=== PATIENT | female | born 1955 | race Caucasian/White ===

== ENCOUNTER 2023-06-24 15:36 | Emergency (ER) | payer OTHER, SELFPAY ==
[2023-06-24 15:39] VITALS: BP 131/64; PULSE 100; RESP 14; TEMP 36.5; O2SAT 97; BMI 21.9
--- NOTE | 2023-06-24 15:53 | DI.RAD.S_ITS ---
PROCEDURE: XR CHEST 1V INDICATIONS: Possible stroke TECHNIQUE: One view of the chest was acquired. COMPARISON: None. FINDINGS: Surgical changes and devices: None. Lungs and pleura: Lungs are clear. No pleural effusions or pneumothorax. Mediastinum: Mediastinal contours appear normal. Heart size is normal. Bones and chest wall: No suspicious bony lesions. Overlying soft tissues appear unremarkable. IMPRESSION: Portable chest within normal limits for age. Approved by: Josh Yang M.D. on 06/24/2023 at 16:09
--- NOTE | 2023-06-24 15:53 | DI.CT.S_ITS ---
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 For radiation dose reduction, the following was used: automated exposure control, adjustment of mA and/or kV according to patient size. COMPARISON: None. FINDINGS: Image quality: Excellent. CSF spaces: Basal cisterns are patent. No extra-axial fluid collections. Ventricles are normal in size and shape. Brain: No midline shift. No intracranial masses or hemorrhage. Barnett-white matter interface is normal. Skull and face: Calvarium and visualized facial bones are intact, without suspicious lesions. Debris in the left external auditory canal(s) can be correlated with direct visualization Sinuses: Visualized sinuses and mastoids are clear. IMPRESSION: Normal CT of the brain This study fulfills neurological imaging criteria for inclusion or exclusion of acute stroke therapies based on available published neurological imaging guidelines. Approved by: Josh Yang M.D. on 06/24/2023 at 15:10
[2023-06-24 16:10] LABS: Appearance Urine UA CLEAR; Bilirubin Urine UA NEGATIVE (NEGATIVE); Color Urine UA YELLOW; Glucose Urine UA NEGATIVE (Negative); Ketones Urine UA NEGATIVE (NEGATIVE); Leukocyte Esterase Urine UA NEGATIVE (NEGATIVE); Nitrite Urine UA NEGATIVE (Negative); Occult Blood Urine UA TRACE-INTACT (Negative); Protein Urine UA NEGATIVE (Negative); Specific Gravity Urine UA <=1.005 (1.000-1.035); Urobilinogen Urine UA 0.2 E.U./dL (0.2)
[2023-06-24 16:15] LABS: UR Morphine/Opiate cutoff 300 Negative (Negative); Ur Creatinine Normal (Normal); Ur Specific Gravity Normal (Normal); Urine Amphetamines Negative (Negative); Urine Barbiturates Negative (Negative); Urine Benzodiazepines Negative (Negative); Urine Cocaine Negative (Negative); Urine MDMA Negative (Negative); Urine Methadone Negative (Negative); Urine Methamphetamines Negative (Negative); Urine Oxycodone Negative (Negative); Urine Phencyclidine Negative (Negative); Urine Tetrahydrocannabinol Positive (Negative); Urine Tricyclic Antidepressant Negative (Negative); Urine pH Normal (Normal)
[2023-06-24 16:17] LABS: Bacteria Urine Occasional (0-1); Culture Indicated Urine Specimen Cultured; RBC Urine 0-1/HPF (0-5/HPF); Squamous Epithelial Cell Urine 10-30 /HPF (0-5/HPF); WBC Urine None Seen (0-5/HPF)
[2023-06-24 16:24] LABS: Add Manual Diff / Slide Review NO; Basophils Absolute Auto 100 /uL (0-100); Basophils Percent Auto 0.7 % (0-2); Eosinophils Absolute Auto 100 /uL (0-450); Eosinophils Percent Auto 1.2 % (2-4); Hematocrit 36.9 % (36-46); Lymphocytes Absolute Auto 2500 /uL (1100-4500); Lymphocytes Percent Auto 32.2 % (25-40); Mean Corpuscular HGB Conc 35.1 % (30-36); Mean Corpuscular Hemoglobin 34.2 PG (26-34); Mean Corpuscular Volume 97.4 fL (80-100); Monocytes Absolute Auto 600 /uL (0-900); Monocytes Percent Auto 7.4 % (3-14); Neutrophils Absolute Auto 4500 /uL (1500-7000); Neutrophils Percent Auto 58.5 % (50-75); Platelet Count 346 X10^3/uL (150-400); Red Blood Cell Count 3.79 X10^6/uL (4.0-5.2); Red Cell Distribution Width 14.4 % (11.6-14.8); White Blood Cell Count 7.7 X10^3/uL (4.5-11.0)
[2023-06-24 16:28] LABS: INR 0.9 (0.9-1.3); Prothrombin Time 10.5 SECONDS (10.1-12.7)
[2023-06-24 16:30] LABS: Ethanol (ETOH) 269 mg/dL; PTT Partial Thromboplastin Tim 30 SECONDS (26-36)
[2023-06-24 16:31] LABS: Alanine Aminotransferase 27 IU/L (<35); Albumin 4.6 g/dL (3.5-5.0); Albumin Globulin Ratio 1.5 (1.0-2.8); Alkaline Phosphatase 63 U/L (38-126); Aspartate Aminotransferase 32 IU/L (14-36); Bilirubin Total 0.4 mg/dL (0.2-1.3); Blood Urea Nitrogen 12 mg/dL (7-17); Calcium 9.2 mg/dL (8.4-10.2); Carbon Dioxide 28 mmol/L (22-32); Chloride 103 mmol/L (98-107); Creatine Kinase 93 U/L (30-135); Estimated Glomerular Filt Rate > 60 mL/min (>60); Globulin 3.1 g/dL (1.7-4.1); Glucose 108 mg/dL (80-110); HEMOLYSIS < 15 (0-50); Magnesium 2.2 mg/dL (1.6-2.3); Potassium 3.5 mmol/L (3.4-5.1); Sodium 141 mmol/L (137-145); Total Protein 7.7 g/dL (6.3-8.2)
--- NOTE | 2023-06-24 16:32 | ED.AMS ---
HPI - Altered Mental Status General Chief Complaint: Altered Mental Status Stated Complaint: Trouble thinking, Sudden onset Time Seen by Provider: 06/24/23 15:57 Source: patient and family Mode of arrival: Ambulatory Limitations: no limitations History of Present Illness HPI narrative: This is a 68-year-old female with no reported medical issues. 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 She states she is having trouble thinking, sudden NSAID a feeling sad and then happy with the quick change in emotions. No headaches, denies chest pain, denies shortness of breath, normal movement, no numbness tingling or weakness. No chest pain, no shortness of breath, no nausea or vomiting, no diarrhea constipation, no dysuria urgency or frequency. Patient has states no similar episodes. She denies any daily medications. No prior surgeries. No known drug allergies. Patient states no tobacco, occasional alcohol, she states she would alcohol last night but states couple drinks at the most. She states she is marijuana but denies other illicit. States she lives in [place]. Related Data Allergies Allergy/AdvReac Type Severity Reaction Status Date / Time No Known Drug Allergies Allergy Verified 06/24/23 15:48 Review of Systems Review of Systems ROS Unobtainable: All systems reviewed & are unremarkable except as noted in HPI and below Patient History Social History Smoking Status: Never smoker Smoking Status: Never smoker alcohol intake frequency: 0-2 drinks per day Alcohol type: wine Substance Use Type: marijuana Exam Narrative Exam Narrative: GEN: well nourished, well appearing female, alert and oriented x 3, patient appears to be in mild distress. Patient is laughing and joking during evaluation. HEENT: Atraumatic, pupils are equal round reactive to light, extraocular movements are intact, nares are clear, TMs are clear with no fluid, there is no conjunctival pallor. Throat is clear without any exudates, erythema, tonsillar enlargement or uvular deviation HEART: Regular rate and rhythm without murmur, clicks, rubs. Pulses are equal in upper and lower extremities LUNGS:Lungs clear to auscultation, no wheezes, rales, crackles, chest moves symmetrically ABD:bowel sounds normal, soft, non-tender, no guarding, rebound, rigidity, no masses noted, no hepatosplenomegaly :No CVA tenderness MSCL: Non-tender, no muscle atrophy, muscles strength 5/5 upper and lower extremities, full range of motion NEURO:CN 2-12 intact, sensation normal SKIN: No rash, no erythema, petechiae, ecchymosis or other skin changes Initial Vital Signs Initial Vital Signs: Vital Signs Temperature 97.7 F 06/24/23 15:39 Pulse Rate 100 H 06/24/23 15:39 Respiratory Rate 14 06/24/23 15:39 Blood Pressure 131/64 06/24/23 15:39 Pulse Oximetry 97 06/24/23 15:39 Oxygen Delivery Method Room Air 06/24/23 15:39 Course Orders Ordered: ED Orders 06/24/23 15:53 CT Stroke Stat XR chest 1V Stat EKG-12 Lead Stat 06/24/23 16:00 Urinalysis and Microscopic Stat Urine Culture Stat Urine Drug Screen, Rapid Stat 06/24/23 16:15 Complete Blood Count AUTO DIFF Stat Comprehensive Metabolic Panel Stat ETOH [Ethanol (ETOH)] Stat Magnesium Stat PTT Partial Thromboplastin Michael Stat Prothrombin Time INR Stat Troponin & CK Cardiac Panel Stat Discontinued Medications Ondansetron HCl (Ondansetron 4 Mg/2 Ml Inj) 4 mg IV NOW PRN PRN Reason: Nausea And Vomiting Ondansetron HCl (Ondansetron 4 Mg Odt) 4 mg SL NOW PRN PRN Reason: Nausea And Vomiting Vital Signs Vital signs: Vital Signs - 8 hr 06/24/23 15:39 06/24/23 16:50 06/24/23 17:03 Temperature 97.7 F Pulse Rate 100 H 86 94 H Respiratory Rate 14 16 Blood Pressure 131/64 172/91 H 138/78 Pulse Oximetry 97 97 95 Oxygen Delivery Method Room Air Room Air Room Air MDM - Altered Mental Status Lab Data 06/24/23 16:15 06/24/23 16:15 Labs: Lab Results 06/24/23 06/24/23 06/24/23 Range/Units 16:00 16:00 16:15 WBC 7.7 (4.5-11.0) X10^3/uL RBC 3.79 L (4.0-5.2) X10^6/uL Hgb 13.0 (12.0-16.0) g/dL Hct 36.9 (36-46) % MCV 97.4 (80-100) fL MCH 34.2 H (26-34) PG MCHC 35.1 (30-36) % RDW 14.4 (11.6-14.8) % Plt Count 346 (150-400) X10^3/uL Neut % (Auto) 58.5 (50-75) % Lymph % (Auto) 32.2 (25-40) % [place] % (Auto) 7.4 (3-14) % Eos % (Auto) 1.2 L (2-4) % Baso % (Auto) 0.7 (0-2) % Neut # (Auto) 4500 (1027-1035) /uL Lymph # (Auto) 2500 (2766-1254) /uL [place] # (Auto) 600 (0-900) /uL Eos # (Auto) 100 (0-450) /uL Baso # (Auto) 100 (0-100) /uL PT (10.1-12.7) SECONDS INR (0.9-1.3) APTT (26-36) SECONDS Sodium (137-145) mmol/L Potassium (3.4-5.1) mmol/L Chloride (98-107) mmol/L Carbon Dioxide (22-32) mmol/L BUN (7-17) mg/dL Creatinine (0.52-1.04) mg/dL Estimated GFR (>60) mL/min BUN/Creatinine Ratio (6-22) Glucose (80-110) mg/dL Calcium (8.4-10.2) mg/dL Magnesium (1.6-2.3) mg/dL Total Bilirubin (0.2-1.3) mg/dL AST (14-36) IU/L ALT (<35) IU/L Alkaline Phosphatase (38-126) U/L Total Creatine Kinase (30-135) U/L Troponin I (0.01-0.034) ng/mL Total Protein (6.3-8.2) g/dL Albumin (3.5-5.0) g/dL Globulin (1.7-4.1) g/dL Albumin/Globulin Ratio (1.0-2.8) Urine Color Yellow Urine Appearance Clear Urine pH 6.0 (4.5-8.0) Ur Specific [place] <=1.005 (1.000-1.035) Urine Protein Negative (Negative) Urine Glucose (UA) Negative (Negative) g/dL Urine Ketones Negative (NEGATIVE) Urine Occult Blood Trace-intact (Negative) Urine Nitrate Negative (Negative) Urine Bilirubin Negative (NEGATIVE) Urine Urobilinogen 0.2 (0.2) E.U./dL Ur Leukocyte Esterase Negative (NEGATIVE) Urine RBC 0-1/hpf (0-5/HPF) Urine WBC None seen (0-5/HPF) Ur Squamous Epith Cells 10-30 /hpf H (0-5/HPF) Urine Bacteria Occasional (0-1) (None) Ur Culture Indicated? Specimen cultured U Opiates 300ng/mL cut Negative (Negative) Ur Oxycodone Screen Negative (Negative) Urine Methadone Screen Negative (Negative) Ur Barbiturates Screen Negative (Negative) U Tricyclic Antidepress Negative (Negative) Ur Phencyclidine Scrn Negative (Negative) Ur Amphetamines Screen Negative (Negative) U Methamphetamines Scrn Negative (Negative) Ur MDMA Scrn (Ecstasy) Negative (Negative) U Benzodiazepines Scrn Negative (Negative) Urine Cocaine Screen Negative (Negative) U Marijuana (THC) Screen Positive H (Negative) Ethyl Alcohol ( - 10) mg/dL 06/24/23 06/24/23 06/24/23 Range/Units 16:15 16:15 16:15 WBC (4.5-11.0) X10^3/uL RBC (4.0-5.2) X10^6/uL Hgb (12.0-16.0) g/dL Hct (36-46) % MCV (80-100) fL MCH (26-34) PG MCHC (30-36) % RDW (11.6-14.8) % Plt Count (150-400) X10^3/uL Neut % (Auto) (50-75) % Lymph % (Auto) (25-40) % [place] % (Auto) (3-14) % Eos % (Auto) (2-4) % Baso % (Auto) (0-2) % Neut # (Auto) (0934-9628) /uL Lymph # (Auto) (7114-0070) /uL [place] # (Auto) (0-900) /uL Eos # (Auto) (0-450) /uL Baso # (Auto) (0-100) /uL PT 10.5 (10.1-12.7) SECONDS INR 0.9 (0.9-1.3) APTT 30 (26-36) SECONDS Sodium 141 (137-145) mmol/L Potassium 3.5 (3.4-5.1) mmol/L Chloride 103 (98-107) mmol/L Carbon Dioxide 28 (22-32) mmol/L BUN 12 (7-17) mg/dL Creatinine 0.75 (0.52-1.04) mg/dL Estimated GFR > 60 (>60) mL/min BUN/Creatinine Ratio 16.0 (6-22) Glucose 108 (80-110) mg/dL Calcium 9.2 (8.4-10.2) mg/dL Magnesium 2.2 (1.6-2.3) mg/dL Total Bilirubin 0.4 (0.2-1.3) mg/dL AST 32 (14-36) IU/L ALT 27 (<35) IU/L Alkaline Phosphatase 63 (38-126) U/L Total Creatine Kinase 93 (30-135) U/L Troponin I < 0.012 (0.01-0.034) ng/mL Total Protein 7.7 (6.3-8.2) g/dL Albumin 4.6 (3.5-5.0) g/dL Globulin 3.1 (1.7-4.1) g/dL Albumin/Globulin Ratio 1.5 (1.0-2.8) Urine Color Urine Appearance Urine pH (4.5-8.0) Ur Specific [place] (1.000-1.035) Urine Protein (Negative) Urine Glucose (UA) (Negative) g/dL Urine Ketones (NEGATIVE) Urine Occult Blood (Negative) Urine Nitrate (Negative) Urine Bilirubin (NEGATIVE) Urine Urobilinogen (0.2) E.U./dL Ur Leukocyte Esterase (NEGATIVE) Urine RBC (0-5/HPF) Urine WBC (0-5/HPF) Ur Squamous Epith Cells (0-5/HPF) Urine Bacteria (None) Ur Culture Indicated? U Opiates 300ng/mL cut (Negative) Ur Oxycodone Screen (Negative) Urine Methadone Screen (Negative) Ur Barbiturates Screen (Negative) U Tricyclic Antidepress (Negative) Ur Phencyclidine Scrn (Negative) Ur Amphetamines Screen (Negative) U Methamphetamines Scrn (Negative) Ur MDMA Scrn (Ecstasy) (Negative) U Benzodiazepines Scrn (Negative) Urine Cocaine Screen (Negative) U Marijuana (THC) Screen (Negative) Ethyl Alcohol 269 H ( - 10) mg/dL Point of Care Testing Glucose POC [address] scan - head: Radiologist's Impression: Maureen Amos??68??F??1955 ? Allergy/Adv: No Known Drug Allergies (More??) Close Chest X-Ray 06/24/[address] (Signed) Josh Yang - 06/24/23 Launch?[place] [address] CT Scan Report Signed Patient: Maureen Amos MR#: [id number] : 1955 Acct:[id number] Age/Sex: 68 / F Date of Service: 06/24/23 Loc: ED Accession Number: [id number] ?? Procedure: CT Stroke Ordering Provider: Ranjana Wisdom D.O. PROCEDURE:? CT STROKE ? INDICATIONS:? 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 TECHNIQUE:? Noncontrast 4.5 mm thick angled axial sections acquired from the foramen magnum to the vertex, with coronal reformats.? For radiation dose reduction, the following was used:? automated exposure control, adjustment of mA and/or kV according to patient size.? ? COMPARISON:? None. ? FINDINGS:? Image quality:? Excellent.? ? CSF spaces:? Basal cisterns are patent.? No extra-axial fluid collections.? Ventricles are normal in size and shape.? ? Brain:? No midline shift.? No intracranial masses or hemorrhage.? Barnett-white matter interface is normal.? ? Skull and face:? Calvarium and visualized facial bones are intact, without suspicious lesions.? Debris in the left external auditory canal(s) can be correlated with direct visualization ? Sinuses:? Visualized sinuses and mastoids are clear.? ? IMPRESSION:? ? Normal CT of the brain ? This study fulfills neurological imaging criteria for inclusion or exclusion of acute stroke therapies based on available published neurological imaging guidelines.? Approved by: Josh Yang M.D. on 06/24/2023 at 15:10? Chest x-ray: Radiologist's Impression: [address] [address] XRay Report Signed Patient: Maureen Amos MR#: [id number] : 1955 Acct:[id number] Age/Sex: 68 / F Date of Service: 06/24/23 Loc: ED Accession Number: [id number] ?? Procedure: XR chest 1V Ordering Provider: Ranjana Wisdom D.O. PROCEDURE:? XR CHEST 1V ? INDICATIONS:? Possible stroke ? TECHNIQUE:? One view of the chest was acquired.? ? COMPARISON:? None. ? FINDINGS:? ? Surgical changes and devices:? None.? ? Lungs and pleura:? Lungs are clear.? No pleural effusions or pneumothorax.? ? Mediastinum:? Mediastinal contours appear normal.? Heart size is normal.? ? Bones and chest wall:? No suspicious bony lesions.? Overlying soft tissues appear unremarkable.? ? ? IMPRESSION:? Portable chest within normal limits for age. ? ? ? Approved by: Josh Yang M.D. on 06/24/2023 at 16:09? ECG Data Attestation: I personally reviewed and interpreted this ECG as follows: Interpretation: NSR, rate 75, SD 156, qrs 80, Qtc [address] changes. No acute ST changes noted. [facility] Narrative Medical decision making narrative: This is a 68-year-old female who presents with complaint of sudden onset of personality changes with laughing crying intermittently. States he is had some depressive history in the past but no other acute changes. Patient was laughing and then tearful in triage. She is joking around with myself, no other acute neurologic changes appreciated. No lateralizing changes. She initially denies any alcohol accept for last night. Patient's labs, head CT, chest x-ray shows no acute change UDS is positive for THC alcohol is 269 which is likely source of her symptoms today. She initially denied any other alcohol today her boyfriend noted she would a half beer at lunch today discussed that her alcohol is quite elevated. Patient ambulating, otherwise appropriate with no SI HI other high-risk features patient felt appropriate for discharge home with her boyfriend who feels comfortable. Patient boyfriend and staff noted she is drinking from an opaque cup, when checked in filled with juice and alcohol. Poured out here in ED. Patient and boyfriend reviewed all of todays findings. Discharge Plan Departure Patient Disposition: Home Clinical Impression: Alcohol intoxication Activity Restrictions/Additional Instructions: Please follow up as needed. It appears your symptoms today are related to alcohol intoxication. No other acute changes were found today. Please return for new or worsening changes, severe headaches, chest pain, shortness of breath, persistent vomiting, passing out or other new or concerning changes. Stand Alone Forms: Patient Portal/API
[2023-06-24 16:43] LABS: Troponin I < 0.012 ng/mL (0.01-0.034)
[2023-06-24 16:50] VITALS: BP 172/91; PULSE 86; O2SAT 97
[2023-06-24 17:03] VITALS: BP 138/78; PULSE 94; RESP 16; O2SAT 95
--- NOTE | 2023-06-24 17:05 | PC.NURSE ---
This RN went to meet with patient to perform assessment. Patient and significant other had been informed that patient had a SALVADOR of 269 and had questions on how patient had become so intoxicated. Asked further questions and then significant other had patient give this RN the black, opaque shaker bottle she's been drinking out of to empty d/t concerns that patient had involuntarily been given alcohol. Upon opening container, there was a strong odor of alcohol, that was confirmed by significant other. Removed container and took to charge and provider, and per patient and significant other's request emptied in med room. Returned emptied bottle to patient and gave her glass of water per providers instructions.
== END 2023-06-24 17:47 | disposition home or self-care (01) ==
PROVIDERS: Emergency Provider Emergency Medicine
DX: F10.129 Alcohol abuse with intoxication, unspecified (principal); F12.90 Cannabis use, unspecified, uncomplicated; Y90.8 Blood alcohol level of 240 mg/100 ml or more
CPT/HCPCS: 36415; 70450; 71045; 80053; 80305; 80320; 81001; 82550; 82962; 83735; 84484; 85025; 85610; 85730; 87086; 93005; 93010; 99284